=== PATIENT | male | born 2000 | race Caucasian/White ===

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

== ENCOUNTER 2023-06-18 08:27 | Emergency (ER) | payer BC, MEDICAID ==
--- NOTE | 2023-06-18 08:44 | ERPHSYRPT ---
- History of Present Illness Time Seen by Provider: 06/18/23 08:44 Source: patient Exam Limitations: no limitations Physician History: This is a 23-year-old white male patient who has a history of ADHD and presents with 2-day history of nasal congestion, runny nose, mild nonproductive cough and sore throat. Patient has no known exposures to individuals with similar symptoms. He has not had a fever. He denies chest pain. He said no nausea vomiting or diarrhea symptoms. Patient takes no medications chronically and he has no known drug allergies. Timing/Duration: day(s) (2) Cough Quality/Degree: mild Possible Cause: no prior episodes Modifying Factors: Improves With: coughing Associated Symptoms: cough, nasal congestion, nasal drainage, sore throat, No chest pain/soreness, No shortness of breath, No wheezing Allergies/Adverse Reactions: No Known Drug Allergies Allergy (Verified 06/18/23 08:32) Hx Tetanus, Diphtheria Vaccination/Date Given: Yes Hx Influenza Vaccination/Date Given: Yes Hx Pneumococcal Vaccination/Date Given: No Travel Risk - International Travel Have you traveled outside of the country in past 3 weeks: No - Emerging Infectious Disease Are you exhibiting symptoms associated with any current EIDs: Yes Symptoms: Cough: New Onset, Other (Please Comment) (Nasal congestion, sore throat) - Review of Systems Constitutional: No Symptoms Eyes: No Symptoms Ears, Nose, & Throat: Nose Congestion, Nose Discharge, Throat Pain Respiratory: No Symptoms Cardiac: No Symptoms Abdominal/Gastrointestinal: No Symptoms Genitourinary Symptoms: No Symptoms Musculoskeletal: No Symptoms Skin: No Symptoms Neurological: No Symptoms Psychological: No Symptoms Endocrine: No Symptoms Hematologic/Lymphatic: No Symptoms Immunological/Allergic: No Symptoms All Other Systems: Reviewed and Negative - Past Medical History Pertinent Past Medical History: Yes Neurological History: No Pertinent History ENT History: No Pertinent History, Other Cardiac History: No Pertinent History Respiratory History: No Pertinent History Endocrine Medical History: No Pertinent History Musculoskeletal History: No Pertinent History GI Medical History: No Pertinent History History: Other Psycho-Social History: Attention Deficit Disorder Other Medical History: adhd - Past Surgical History Past Surgical History: Yes Neuro Surgical History: No Pertinent History Cardiac: No Pertinent History Respiratory: No Pertinent History Gastrointestinal: No Pertinent History Musculoskeletal: No Pertinent History Other Surgical History: Tubes in ear, urethra split, tenton in neck cut Significant Family History: no pertinent family hx - Social History Smoking Status: Never smoker Exposure to second hand smoke: No Alcohol Use: Occasionally Drug Use: none Patient Lives Alone: No - Nursing Vital Signs Nursing Vital Signs: Initial Vital Signs Temperature 98.3 F 06/18/23 08:33 Pulse Rate 73 06/18/23 08:33 Respiratory Rate 18 06/18/23 08:33 Blood Pressure 109/62 06/18/23 08:33 O2 Sat by Pulse Oximetry 99 06/18/23 08:33 Pain Scale Pain Intensity 4 - Physical Exam General Appearance: no apparent distress, alert Eye Exam: PERRL/EOMI, eyes nml inspection Ears, Nose, Throat Exam: moist mucous membranes, pharyngeal erythema (Mild) Neck Exam: normal inspection, non-tender, supple, full range of motion Respiratory Exam: normal breath sounds, lungs clear, airway intact, No chest tenderness, No respiratory distress Cardiovascular Exam: regular rate/rhythm, normal heart sounds, normal peripheral pulses Gastrointestinal/Abdomen Exam: soft, normal bowel sounds, No tenderness Rectal Exam: not done Back Exam: normal inspection, normal range of motion, No CVA tenderness, No vertebral tenderness Extremity Exam: normal inspection, normal range of motion, pelvis stable Neurologic Exam: alert, oriented x 3, cooperative, assembly hand II-XII nml as tested, normal mood/affect, nml cerebellar function, nml station & gait, sensation nml Skin Exam: normal color, warm, dry Lymphatic Exam: No adenopathy SpO2 Interpretation: normal O2 Delivery: Room Air - Course Nursing assessment & vital signs reviewed: Yes Lab/Rad Data: Laboratory Results 06/18/23 Range/Units 08:39 Influenza Type A Ag NEGATIVE (NEGATIVE) Influenza Type B Ag NEGATIVE (NEGATIVE) RSV (PCR) NEGATIVE (NEGATIVE) SARS-CoV-2 (PCR) NEGATIVE (NEGATIVE) Group A Strep Antibody NOT DETECTED (NEGATIVE) - Progress Progress: unchanged Air Movement: good Progress Note: 06/18/23 09:01 Medical decision making and assignment of low complexity to this patient's medical issues based on review of the patient's past medical history, review of the patient's medication list, review of patient drug allergy list, history present illness and physical findings on examination. The workup in this patient includes viral swabs and group A strep swab. Differential diagnosis strep pharyngitis, viral illness, seasonal allergies 06/18/23 09:19 I interpreted the patient's laboratory data results. Patient does not have an acute, emergent medical issue at this time. Blood Culture(s) Obtained: No Counseled pt/family regarding: lab results, diagnosis, need for follow-up Medical Desision Making - Diagnostic Testing Diagnostic test were ordered, analyzed, and reviewed by me: Yes - Risk of complications The pt has a mod risk of morbidity or mortality based on: Need for prescription drug management - Departure Departure Disposition: Home Clinical Impression: Upper respiratory infection, Pharyngitis Condition: Stable Critical Care Time: No Additional Instructions: Drink plenty of clear liquids. Use Tylenol and ibuprofen for pain and fever control. Take your medications as prescribed. Call your primary care provider on 06/19/2023 to make arrangements for follow-up appointment in the next 5 to 7 days. Use [id number] medications to aid in cough suppression. Prescriptions: Prednisone 10 mg [Deltasone 10 mg] 10 mg PO TID #12 tablet Azithromycin 250 mg [Zithromax 250 MG TABLET] 250 mg PO ZPACK #6 tablet
[2023-06-18 08:45] VITALS: RESP 18; TEMP 98.3; O2SAT 99
[2023-06-18 09:05] LABS: Group A Strep NOT DETECTED (NEGATIVE)
[2023-06-18 09:16] LABS: INFLUENZA A NEGATIVE (NEGATIVE); INFLUENZA B NEGATIVE (NEGATIVE); RESPIRATORY SYNCTIAL VIRUS NEGATIVE (NEGATIVE); SARS-CoV-2 Xpert Express NEGATIVE (NEGATIVE)
[2023-06-18 09:32] VITALS: BP 107/71; PULSE 70
== END 2023-06-18 09:30 | disposition home or self-care (01) ==
LOC: ED 08:27
DX: J06.9 Acute upper respiratory infection, unspecified (principal); J02.9 Acute pharyngitis, unspecified; R09.81 Nasal congestion; R05.1 Acute cough; Z79.52 Long term (current) use of systemic steroids
CPT/HCPCS: 0241U; 87651; 99282

== ENCOUNTER 2023-06-24 05:55 | Emergency (ER) | payer BC, MEDICAID ==
[2023-06-24 06:06] VITALS: RESP 18; TEMP 97.5
[2023-06-24] MEDS ORDERED: solu-MEDROL ONE (06:20)
[2023-06-24] MEDS ORDERED: BENADRYL 50 MG/ML ONE (06:20)
[2023-06-24] MEDS ORDERED: Pepcid 20 MG VIAL IV ONE (06:20)
[2023-06-24] MEDS ORDERED: Sterile H2O 10 ml IJ ONE (06:20)
[2023-06-24] MEDS: Pepcid 20 MG VIAL IV ONE (06:22)
[2023-06-24] MEDS: solu-MEDROL 125 MG, Sterile H2O 10 ml 2 ML IV ONE (06:22)
[2023-06-24] MEDS: BENADRYL 50 MG/ML IV ONE (06:22)
--- NOTE | 2023-06-24 06:51 | ERPHSYRPT ---
- History of Present Illness Time Seen by Provider: 06/24/23 06:15 Source: patient Exam Limitations: no limitations Patient Subjective Stated Complaint: Rash Triage Nursing Assessment: Patient ambulated back to ED and transferred self to bed. Patient A+O X3. Patient's skin pink, warm and dry. Patient states yesterday he noticed a rash to right side and left thigh. Patient states he woke up with a rash all over him. Patient states his lips feel swollen. Patient denies SOB or trouble swallowing. Patient has hives noted to face, lamine arms, chest, trunk, back and lamine legs. Patient denies pain or discomfort. Patient just finished Zpack and Prednisone a few days ago. Physician History: 23-year-old presented in the ER with complains of hives all over. Patient has been taking amoxicillin and steroids for upper respiratory infection. Patient reports she noticed some rash on the right thigh last night and woke up this morning with all over hives with itching and burning sensation. No throat closing sensation or difficulty breathing. No tongue swelling. No history of known drug allergies. Allergies/Adverse Reactions: No Known Drug Allergies Allergy (Verified 06/24/23 06:00) Hx Tetanus, Diphtheria Vaccination/Date Given: Yes Hx Influenza Vaccination/Date Given: Yes Hx Pneumococcal Vaccination/Date Given: No Immunizations Up to Date: Yes Travel Risk - International Travel Have you traveled outside of the country in past 3 weeks: No - Emerging Infectious Disease Are you exhibiting symptoms associated with any current EIDs: No Symptoms: Cough: New Onset, Other (Please Comment) (Nasal congestion, sore throat) Comment: sore throat - Review of Systems Constitutional: No Symptoms Eyes: No Symptoms Ears, Nose, & Throat: No Symptoms Respiratory: No Symptoms Cardiac: No Symptoms Abdominal/Gastrointestinal: No Symptoms Genitourinary Symptoms: No Symptoms Musculoskeletal: No Symptoms Skin: Pruritis, Rash, Skin Lesions Neurological: No Symptoms Psychological: No Symptoms Endocrine: No Symptoms Hematologic/Lymphatic: No Symptoms Immunological/Allergic: No Symptoms - Past Medical History Pertinent Past Medical History: Yes Neurological History: No Pertinent History ENT History: No Pertinent History, Other Cardiac History: No Pertinent History Respiratory History: No Pertinent History Endocrine Medical History: No Pertinent History Musculoskeletal History: No Pertinent History GI Medical History: No Pertinent History History: Other Psycho-Social History: Attention Deficit Disorder Other Medical History: adhd - Past Surgical History Past Surgical History: Yes Neuro Surgical History: No Pertinent History Cardiac: No Pertinent History Respiratory: No Pertinent History Gastrointestinal: No Pertinent History Musculoskeletal: No Pertinent History Other Surgical History: Tubes in ear, urethra split, tenton in neck cut Significant Family History: no pertinent family hx - Social History Smoking Status: Never smoker Exposure to second hand smoke: No Alcohol Use: Occasionally Drug Use: none Patient Lives Alone: No - Nursing Vital Signs Nursing Vital Signs: Initial Vital Signs Temperature 97.5 F 06/24/23 06:00 Pulse Rate 96 H 06/24/23 06:00 Respiratory Rate 18 06/24/23 06:00 Blood Pressure 124/67 06/24/23 06:00 O2 Sat by Pulse Oximetry 99 06/24/23 06:00 Pain Scale Pain Intensity 0 - Physical Exam General Appearance: no apparent distress, alert Eye Exam: PERRL/EOMI Ears, Nose, Throat Exam: normal ENT inspection, TMs normal, pharynx normal, moist mucous membranes Neck Exam: normal inspection, non-tender, supple, full range of motion Respiratory Exam: normal breath sounds, lungs clear Cardiovascular Exam: regular rate/rhythm, normal heart sounds Gastrointestinal/Abdomen Exam: soft, normal bowel sounds, No tenderness Back Exam: normal range of motion Extremity Exam: normal inspection, normal range of motion Neurologic Exam: alert, oriented x 3, cooperative, psych coordinator II-XII nml as tested Skin Exam: normal color, rash (Hives/wheals all over especially in the lower back/abdomen. Warm, nontender, blanchable) SpO2 Interpretation: normal SpO2: 99 O2 Delivery: Room Air Ordered Tests: Medication Summary Discontinued Medications Generic Name Dose Route Start Last Admin Trade Name Jaqueline PRN Reason Stop Dose Admin Methylprednisolone Sodium 0 mg 06/24/23 06:08 06/24/23 06:22 Succinate 125 mg/ Sterile IV 06/24/23 06:09 125 mg Water 2 ml STAT ONE Administration Diphenhydramine HCl 25 mg 06/24/23 06:08 06/24/23 06:22 Diphenhydramine Hcl 50 Mg/Ml Vial IV 06/24/23 06:09 25 mg STAT ONE Administration Diphenhydramine HCl Confirm 06/24/23 06:20 Diphenhydramine Hcl 50 Mg/Ml Vial Administered 06/24/23 06:21 Dose 50 mg .ROUTE .STK-MED ONE Famotidine 20 mg 06/24/23 06:08 06/24/23 06:22 Famotidine 20 Mg/1 Vial IV 06/24/23 06:09 20 mg STAT ONE Administration Famotidine Confirm 06/24/23 06:20 Famotidine 20 Mg/1 Vial Administered 06/24/23 06:21 Dose 20 mg IV .STK-MED ONE Methylprednisolone Sodium Succinate Confirm 06/24/23 06:20 Methylprednis Sod Succ 125 Mg/2 Ml Vial Administered 06/24/23 06:21 Dose 125 mg .ROUTE .STK-MED ONE Sterile Water Confirm 06/24/23 06:20 Water For Injection,Sterile 10 Ml Vial Administered 06/24/23 06:21 Dose 10 ml IJ .STK-MED ONE - Progress Progress: improved Progress Note: 06/24/23 07:09 23-year-old is evaluated for hives all over after amoxicillin and steroids. I believe patient possibly has allergy to amoxicillin. He is given Solu-Medrol/Benadryl/Pepcid, on reevaluation his itching and burning is better and hives are improving. No respiratory compromise. No signs of distress. He will be discharged with outpatient follow-up. Recommended stopping amoxicillin. Will also give EpiPen. Lungs are clear to imaging neb treatment. Counseled pt/family regarding: diagnosis, need for follow-up Medical Desision Making - Risk of complications The pt has a mod risk of morbidity or mortality based on: Need for prescription drug management - Departure Departure Disposition: Home Clinical Impression: Allergic reaction Condition: Stable Critical Care Time: No Referrals: SARAH BYRD NP [Primary Care Provider] - Follow up with PCP 2 days Instructions: Angioedema (DC), Anaphylaxis (DC) Additional Instructions: Continue with Benadryl/Pepcid and steroids. Use EpiPen as needed. Follow-up with primary care for reevaluation. Return to ER for any worsening. Prescriptions: Diphenhydramine HCl 25 mg [Benadryl 25 mg Capsule] 25 mg PO Q4H PRN PRN #20 cap PRN Reason: Allergies Prednisone 20 mg [Deltasone 20 mg] 60 mg PO DAILY 5 Days #15 tablet Famotidine 20 mg [Pepcid 20 MG] 20 mg PO BID #10 tablet EPINEPHrine [Symjepi] 0.3 mg IJ DIRECTIONS UNKNOWN PRN 1 Days #1 unit PRN Reason: Allergies
[2023-06-24 07:56] VITALS: BP 109/69; PULSE 78; O2SAT 98
== END 2023-06-24 07:56 | disposition home or self-care (01) ==
LOC: ED 05:55
DX: L50.0 Allergic urticaria (principal); T36.0X5A Adverse effect of penicillins, initial encounter; Z79.52 Long term (current) use of systemic steroids; Z79.899 Other long term (current) drug therapy
CPT/HCPCS: 36000; 96374; 96375; 99284; J1200; J2919

== ENCOUNTER 2023-06-26 17:14 | Emergency (ER) | payer BC, OTHER ==
--- NOTE | 2023-06-26 17:16 | ERPHSYRPT ---
- History of Present Illness Time Seen by Provider: 06/26/23 17:16 Source: patient Exam Limitations: no limitations Physician History: This is a 23-year-old white male patient who has had 3 visits to the emergency department in the last 8 days. The 3 visits seem to be unrelated. Today, there was sudden onset of right flank pain that was very intense and causing nausea. He has not had a fever. He denies chest pain. He denies shortness of breath. He did have a recent physical examination and laboratory studies performed for work and there was blood in the urine per his report. Patient arrives to the emergency department in significant pain and somewhat writhing. Patient has a history of ADHD. Timing/Duration: today Method of Injury: other (No injury) Quality: aching, stabbing Severity of Pain-Max: moderate Severity of Pain-Current: moderate Modifying Factors: Improves With: nothing Associated Symptoms: nausea, other (Pain in the right flank), No urinary incontinence, No loss of bowel control Previous symptoms: no prior history, no recent treatment Allergies/Adverse Reactions: azithromycin Allergy (Severe, Verified 06/26/23 17:23) Rash Hx Tetanus, Diphtheria Vaccination/Date Given: Yes Hx Influenza Vaccination/Date Given: Yes Hx Pneumococcal Vaccination/Date Given: No Travel Risk - International Travel Have you traveled outside of the country in past 3 weeks: No - Emerging Infectious Disease Are you exhibiting symptoms associated with any current EIDs: No Symptoms: Cough: New Onset, Other (Please Comment) (Nasal congestion, sore throat) Comment: sore throat - Review of Systems Constitutional: No Symptoms Eyes: No Symptoms Ears, Nose, & Throat: No Symptoms Respiratory: No Symptoms Cardiac: No Symptoms Abdominal/Gastrointestinal: No Symptoms Genitourinary Symptoms: Hematuria, Flank Pain (Right flank pain) Musculoskeletal: No Symptoms Skin: No Symptoms Neurological: No Symptoms Psychological: No Symptoms Endocrine: No Symptoms Hematologic/Lymphatic: No Symptoms Immunological/Allergic: No Symptoms All Other Systems: Reviewed and Negative - Past Medical History Pertinent Past Medical History: Yes Neurological History: No Pertinent History ENT History: No Pertinent History, Other Cardiac History: No Pertinent History Respiratory History: No Pertinent History Endocrine Medical History: No Pertinent History Musculoskeletal History: No Pertinent History GI Medical History: No Pertinent History History: Other Psycho-Social History: Attention Deficit Disorder Other Medical History: adhd - Past Surgical History Past Surgical History: Yes Neuro Surgical History: No Pertinent History Cardiac: No Pertinent History Respiratory: No Pertinent History Gastrointestinal: No Pertinent History Musculoskeletal: No Pertinent History Other Surgical History: Tubes in ear, urethra split, tenton in neck cut Significant Family History: no pertinent family hx - Social History Smoking Status: Never smoker Exposure to second hand smoke: No Alcohol Use: Occasionally Drug Use: none Patient Lives Alone: No - Nursing Vital Signs Nursing Vital Signs: Initial Vital Signs Temperature 98.8 F 06/26/23 17:19 Pulse Rate 84 06/26/23 17:19 Respiratory Rate 22 06/26/23 17:19 Blood Pressure 102/81 06/26/23 17:19 O2 Sat by Pulse Oximetry 98 06/26/23 17:19 Pain Scale Pain Intensity 4 - Physical Exam General Appearance: no apparent distress, alert, anxiety Eye Exam: PERRL/EOMI, eyes nml inspection Ears, Nose, Throat Exam: normal ENT inspection, moist mucous membranes Neck Exam: normal inspection, non-tender, supple, full range of motion Respiratory Exam: normal breath sounds, lungs clear, airway intact, No chest tenderness, No respiratory distress Cardiovascular Exam: regular rate/rhythm, normal heart sounds, normal peripheral pulses Gastrointestinal Exam: soft, normal bowel sounds, No tenderness Rectal Exam: not done Back Exam: normal inspection, normal range of motion, CVA tenderness (Right side), No vertebral tenderness Extremity Exam: normal inspection, normal range of motion, pelvis stable Neurologic Exam: alert, oriented x 3, cooperative, general assembler II-XII nml as tested, normal mood/affect, nml cerebellar function, nml station & gait, sensation nml Skin Exam: normal color, warm, dry Lymphatic Exam: No adenopathy SpO2 Interpretation: normal O2 Delivery: Room Air - Course Nursing assessment & vital signs reviewed: Yes Ordered Tests: Active Orders 24 hr Category Date Time Status IV Insertion STAT Care 06/26/23 17:31 Active ABDOMEN AND PELVIS W/0 CONTRAS [CT] Stat Exams 06/26/23 17:32 Taken AMYLASE Stat Lab 06/26/23 18:05 Completed CBC W DIFF Stat Lab 06/26/23 18:05 Completed CMP Stat Lab 06/26/23 18:05 Completed LIPASE Stat Lab 06/26/23 18:05 Completed UA W/RFX UR CULTURE Stat Lab 06/26/23 18:02 Completed Medication Summary Discontinued Medications Generic Name Dose Route Start Last Admin Trade Name Jaqueline PRN Reason Stop Dose Admin Diphenhydramine HCl 25 mg 06/26/23 19:34 06/26/23 19:39 Diphenhydramine Hcl 25 Mg Capsule PO 06/26/23 19:35 25 mg STAT ONE Administration Diphenhydramine HCl Confirm 06/26/23 19:38 Diphenhydramine Hcl 25 Mg Capsule Administered 06/26/23 19:39 Dose 25 mg .ROUTE .STK-MED ONE Hydromorphone HCl 1 mg 06/26/23 17:31 06/26/23 17:44 Hydromorphone 1 Mg/1ml Inj IV 06/26/23 17:32 1 mg STAT ONE Administration Hydromorphone HCl Confirm 06/26/23 17:42 Hydromorphone 1 Mg/1ml Inj Administered 06/26/23 17:43 Dose 1 mg .ROUTE .STK-MED ONE Sodium Chloride 1,000 mls @ 999 mls/hr 06/26/23 17:31 06/26/23 18:52 Sodium Chloride 0.9% 1000 Ml IV 06/26/23 18:31 Infused .Q1H1M STA Infusion Sodium Chloride Confirm 06/26/23 17:42 Sodium Chloride 0.9% 1000 Ml Administered 06/26/23 17:43 Dose 1,000 mls @ ud .ROUTE .STK-MED ONE Ketorolac Tromethamine 30 mg 06/26/23 17:31 06/26/23 17:44 Ketorolac Tromethamine 30 Mg/Ml Inj IV 06/26/23 17:32 30 mg STAT ONE Administration Ketorolac Tromethamine Confirm 06/26/23 17:42 Ketorolac Tromethamine 30 Mg/Ml Inj Administered 06/26/23 17:43 Dose 30 mg .ROUTE .STK-MED ONE Ondansetron HCl 4 mg 06/26/23 17:31 06/26/23 17:44 Ondansetron Hcl 4 Mg/2 Ml Vial IV 06/26/23 17:32 4 mg STAT ONE Administration Ondansetron HCl Confirm 06/26/23 17:42 Ondansetron Hcl 4 Mg/2 Ml Vial Administered 06/26/23 17:43 Dose 4 mg .ROUTE .STK-MED ONE Lab/Rad Data: Laboratory Result Diagrams 06/26/23 18:05 06/26/23 18:05 Laboratory Results 06/26/23 06/26/23 06/26/23 Range/Units 18:05 18:05 18:02 WBC 10.0 (4.0-10.5) x10^3/uL RBC 4.31 (4.1-5.6) x10^6/uL Hgb 13.0 (12.5-18.0) g/dL Hct 39.6 L (42-50) % MCV 91.9 (78-100) fL MCH 30.2 (26-32) pg MCHC 32.8 (32-36) g/dL RDW 12.7 (11.5-14.0) % Plt Count 230 (150-450) x10^3/uL MPV 10.2 (7.5-11.0) fL Gran % 73.0 H (36.0-66.0) % Immature Gran % (Auto) 0.5 H (0.00-0.4) % Nucleat RBC Rel Count 0.0 (0.00-0.1) % Eos # (Auto) 0.02 (0-0.5) x10^3/uL Immature Gran # (Auto) 0.05 H (0.00-0.03) x10^3u/L Absolute Lymphs (auto) 1.95 (1.0-4.6) x10^3/uL Absolute Monos (auto) 0.67 (0.0-1.3) x10^3/uL Absolute Nucleated RBC 0.00 (0.00-0.01) x10^3u/L Lymphocytes % 19.5 L (24.0-44.0) % Monocytes % 6.7 (0.0-12.0) % Eosinophils % 0.2 (0.00-5.0) % Basophils % 0.1 (0.0-0.4) % Absolute Granulocytes 7.29 H (1.4-6.9) x10^3/uL Basophils # 0.01 (0-0.4) x10^3/uL Sodium 140 (135-145) mmol/L Potassium 3.7 (3.5-5.1) mmol/L Chloride 106 (98-107) mmol/L Carbon Dioxide 27 (22-30) mmol/L Anion Gap 10.0 (5-15) MEQ/L BUN 19 (9-20) mg/dL Creatinine 0.86 (0.66-1.25) mg/dL Estimated GFR 126.3 ML/MIN Glucose 99 (74-106) mg/dL Calcium 8.2 L (8.4-10.2) mg/dL Total Bilirubin 0.30 (0.2-1.3) mg/dL AST 17 (17-59) U/L ALT 11 (0-50) U/L Alkaline Phosphatase 57 (38-126) U/L Serum Total Protein 6.1 L (6.3-8.2) g/dL Albumin 3.4 L (3.5-5.0) g/dL Amylase 67 (30-110) U/L Lipase 27 (23-300) U/L Urine Color Yellow (Yellow) Urine Appearance Cloudy A (Clear) Urine pH 8.0 (4.6-8.0) Ur Specific Colman 1.025 (1.005-1.030) Urine Protein 30 (Negative) Urine Glucose (UA) Negative (Negative) mg/dL Urine Ketones Negative (Negative) Urine Blood Trace (Negative) Urine Nitrite Negative (Negative) Urine Bilirubin Negative (Negative) Urine Urobilinogen 1.0 A (0.2) mg/dL Ur Leukocyte Esterase Negative (Negative) U Hyaline Cast (Auto) NONE SEEN (0-2) /LPF Urine Microscopic RBC 21-50 A (0-5) /HPF Urine Microscopic WBC 0-2 (0-5) /HPF Ur Epithelial Cells None Seen (None Seen) /HPF Urine Bacteria None Seen (None Seen) /HPF Urine Culture Reflexed NO (NO) - Progress Progress: improved, pain not gone completely, re-examined Progress Note: 06/26/23 18:31 Medical decision making and the assignment of moderate complexity to this patient's medical issue today is based on review of the patient's medical issue, review of the patient's medication list, review of patient drug allergy list, history present illness and physical findings on examination. The workup in this patient includes placement of intravenous line, infusion of Toradol 30 mg intravenously, infusion of Zofran 4 mg intravenously, infusion of Dilaudid 1 mg intravenously, urinalysis, CBC, CMP, amylase, lipase, CT scan of the abdomen pelvis without contrast. Differential diagnosis includes ureterolithiasis, bowel obstruction, pancreatitis, appendicitis, pyelonephritis, UTI, musculoskeletal back pain 06/26/23 19:57 I interpreted the patient's laboratory data results. Patient does have hematuria without urinary tract infection. CT scan of the abdomen pelvis without contrast was interpreted by the radiologist and I reviewed the impression. The impression states continued normal CT scan of the abdomen pelvis without acute abnormalities. Counseled pt/family regarding: lab results, diagnosis, need for follow-up, rad results Medical Desision Making - Diagnostic Testing Diagnostic test were ordered, analyzed, and reviewed by me: Yes Radiological Interpretation: Reviewed by me, Teleradiologist Report - Risk of complications Minimal Risk: Minimal risk of morbidity - Departure Departure Disposition: Home Clinical Impression: Back pain, Hematuria Condition: Stable Critical Care Time: No Referrals: SARAH BYRD NP [Primary Care Provider] - Follow up/PCP as directed Additional Instructions: Drink plenty of fluids. Take all your medications as prescribed. Follow-up with your primary care provider tomorrow, 06/27/2023, to make arrangements for further evaluation and a follow-up appointment to be seen in the next 3 to 5 days. Discussed with your provider whether or not you would benefit from being referred to a urologist.
[2023-06-26 17:22] VITALS: TEMP 98.8
[2023-06-26] MEDS ORDERED: TORAdol 30 mg Injection ONE (17:42)
[2023-06-26] MEDS ORDERED: Zofran 4 MG/2 ML VIAL ONE (17:42)
[2023-06-26] MEDS ORDERED: Sodium Chloride 0.9% 1000 ML 1,000 ML ONE (17:42)
[2023-06-26] MEDS ORDERED: Hydromorphone 1 mg/ml Injection ONE (17:42)
[2023-06-26] MEDS: Sodium Chloride 0.9% 1000 ML 1,000 ML IV STA (17:44)
[2023-06-26] MEDS: TORAdol 30 mg Injection IV ONE (17:44)
[2023-06-26] MEDS: Hydromorphone 1 mg/ml Injection IV ONE (17:44)
[2023-06-26] MEDS: Zofran 4 MG/2 ML VIAL IV ONE (17:44)
[2023-06-26 18:15] LABS: Absolute Neutrophil Ct (ANC) 7.29 x10^3/uL (1.4-6.9); BASOPHIL % 0.1 % (0.0-0.4); Basophil (Absolute #) 0.01 x10^3/uL (0-0.4); Eosinophil % 0.2 % (0.00-5.0); Eosinophil (Absolute #) 0.02 x10^3/uL (0-0.5); Hematocrit 39.6 % (42-50); IMMATURE GRAN # 0.05 x10^3u/L (0.00-0.03); IMMATURE GRAN % 0.5 % (0.00-0.4); Lymphocyte (Absolute #) 1.95 x10^3/uL (1.0-4.6); Lymphocytes % 19.5 % (24.0-44.0); Mean Cell Volume 91.9 fL (78-100); Mean Corpuscular Hemoglobin 30.2 pg (26-32); Mean Corpuscular Hgb Concent. 32.8 g/dL (32-36); Mean Platelet Volume 10.2 fL (7.5-11.0); Monocyte (Absolute #) 0.67 x10^3/uL (0.0-1.3); Monocytes % 6.7 % (0.0-12.0); Platelet Count 230 x10^3/uL (150-450); Red Blood Count 4.31 x10^6/uL (4.1-5.6); Red Cell Distribution Width 12.7 % (11.5-14.0)
[2023-06-26 18:15] LABS: Appearance Cloudy (Clear); Bacteria None Seen /HPF (None Seen); Bilirubin Negative (Negative); Blood Trace (Negative); Epithelial Cells None Seen /HPF (None Seen); Glucose, Urine Negative (Negative); Hyaline Casts NONE SEEN /LPF (0-2); Ketones Negative (Negative); Leukocyte Esterase Negative (Negative); Nitrite Negative (Negative); Protein,Urine Dip 30 (Negative); RBC 21-50 /HPF (0-5); Specific Gravity 1.025 (1.005-1.030); WBC 0-2 /HPF (0-5)
[2023-06-26 18:16] LABS: ADD URINE CULTURE? NO (NO)
[2023-06-26 18:26] LABS: ALBUMIN 3.4 g/dL (3.5-5.0); BILIRUBIN,TOTAL 0.3 mg/dL (0.2-1.3); Calcium 8.2 mg/dL (8.4-10.2); Creatinine 1 0.86 mg/dL (0.66-1.25); EST GLOMERULAR FILTRATION RATE 126.3 ML/MIN; Potassium 3.7 mmol/L (3.5-5.1); Total Protein 6.1 g/dL (6.3-8.2)
[2023-06-26 19:12] VITALS: PULSE 74; RESP 18
[2023-06-26] MEDS ORDERED: BENADRYL 25 MG CAPSULE ONE (19:38)
[2023-06-26] MEDS: BENADRYL 25 MG CAPSULE PO ONE (19:39)
[2023-06-26 20:04] VITALS: BP 121/74; O2SAT 97
--- NOTE | 2023-06-27 08:34 | XRAY ---
Indication: Right flank pain. Hematuria. Multiple contiguous axial images obtained through the abdomen and pelvis without contrast using renal stone protocol. Comparison: January 18, 2018 Lung bases demonstrate new small left costophrenic angle calcified granuloma. No infiltrate or effusion. Heart not enlarged. No renal calculus or evidence for obstructive uropathy in either system. Noncontrasted stomach and bowel loops appear nonobstructed with normal appendix. No free fluid/air. Remaining liver, gallbladder, pancreas, spleen, adrenal glands, kidneys, ureters, bladder, and aorta are unremarkable for noncontrast exam. Osseous structures intact. No ventral or inguinal hernias. Impression: Continued negative CT abdomen/pelvis without contrast exam.
== END 2023-06-26 20:06 | disposition home or self-care (01) ==
LOC: ED 17:14
DX: M54.9 Dorsalgia, unspecified (principal); R31.9 Hematuria, unspecified; R10.9 Unspecified abdominal pain
CPT/HCPCS: 36000; 36415; 74176; 80053; 81001; 82150; 83690; 85025; 96374; 96375; 99284; J1170; J1885; J2405; A9270-GY

== ENCOUNTER 2024-02-12 02:17 | Emergency (ER) | payer BC, OTHER ==
[2024-02-12 02:43] VITALS: TEMP 97.6
--- NOTE | 2024-02-12 03:01 | ERPHSYRPT ---
- History of Present Illness Historian: patient Exam Limitations: no limitations Patient Subjective Stated Complaint: c/o vomiting and diarrhea Triage Nursing Assessment: patient brought to ED by father with c/o vomiting and diarrhea that started at 19:00. Patient states he has belly pain 4/10 and 6/10 back pain. Pt stated he thinks he has puked 15-16 times. Patient has diarrhea, last BM today. Bowel sounds present in all 4 quads. Patient's vitals wnl, skin w/n/d, afebrile, gasit steady, patient doesn't appear to be in any distress at this time. Physician History: Patient had nausea vomiting diarrhea for about 24 hours. He said he is thrown up multiple times and had a lot of diarrhea. He says he thinks he is getting dehydrated. He does not have any abdominal pain. He has no fever but has had some chills. Eating makes it worse nothing really makes it better. He does not have any abdominal pain. He does not have any abdominal conditions to be worried about at this time. Timing/Duration: today, yesterday Allergies/Adverse Reactions: azithromycin Allergy (Severe, Verified 02/12/24 02:43) Rash Hx Tetanus, Diphtheria Vaccination/Date Given: No (unknown) Hx Influenza Vaccination/Date Given: No Hx Pneumococcal Vaccination/Date Given: No Travel Risk - International Travel Have you traveled outside of the country in past 3 weeks: No - Emerging Infectious Disease Are you exhibiting symptoms associated with any current EIDs: Yes Symptoms: Diarrhea, Vomitting Comment: sore throat - Review of Systems Constitutional: No Symptoms Eyes: No Symptoms Respiratory: No Symptoms Abdominal/Gastrointestinal: Nausea, Vomiting, Diarrhea Genitourinary Symptoms: No Symptoms All Other Systems: Reviewed and Negative - Past Medical History Pertinent Past Medical History: Yes Neurological History: No Pertinent History ENT History: No Pertinent History, Other Cardiac History: No Pertinent History Respiratory History: No Pertinent History Endocrine Medical History: No Pertinent History Musculoskeletal History: No Pertinent History GI Medical History: No Pertinent History History: Other Psycho-Social History: Attention Deficit Disorder Other Medical History: adhd - Past Surgical History Past Surgical History: Yes Neuro Surgical History: No Pertinent History Cardiac: No Pertinent History Respiratory: No Pertinent History Gastrointestinal: No Pertinent History Musculoskeletal: No Pertinent History Other Surgical History: Tubes in ear, urethra split, tendon in neck cut Significant Family History: no pertinent family hx - Social History Smoking Status: Never smoker Exposure to second hand smoke: No Alcohol Use: Occasionally Drug Use: none Patient Lives Alone: No - Social Determinants of Health Will the patient participate in the screening: Yes Do you worry about a steady place to live?: No Do you have any problems with any of the following?: No known problems In the past 12 months,have you had to go without utilities?: No Transportation Issues: No Has anyone in your support network made you feel unsafe?: No Have you or anyone in your house had to go without enough: No - Nursing Vital Signs Nursing Vital Signs: Initial Vital Signs Temperature 97.6 F 02/12/24 02:30 Pulse Rate 86 02/12/24 02:30 Respiratory Rate 19 02/12/24 02:30 Blood Pressure 121/68 02/12/24 02:30 O2 Sat by Pulse Oximetry 97 02/12/24 02:30 Pain Scale Pain Intensity 4 - Physical Exam General Appearance: no apparent distress Eye Exam: PERRL/EOMI Respiratory Exam: normal breath sounds, lungs clear, No chest tenderness, No respiratory distress Cardiovascular Exam: regular rate/rhythm, normal heart sounds Gastrointestinal/Abdomen Exam: soft, normal bowel sounds, tenderness Back Exam: normal inspection, normal range of motion Extremity Exam: normal inspection Neurologic Exam: alert, oriented x 3 Skin Exam: normal color, warm, dry SpO2: 97 - Course Nursing assessment & vital signs reviewed: Yes Ordered Tests: Active Orders 24 hr Category Date Time Status CBC W DIFF Stat Lab 02/12/24 03:20 Received CMP Stat Lab 02/12/24 03:20 Received Medication Summary Generic Name Dose Route Start Last Admin Trade Name Freq PRN Reason Stop Dose Admin Sodium Chloride 1,000 mls @ 999 mls/hr 02/12/24 03:10 02/12/24 03:13 Sodium Chloride 0.9% 1000 Ml IV 02/12/24 04:10 999 mls/hr .Q1H1M STA Administration Discontinued Medications Generic Name Dose Route Start Last Admin Trade Name Freq PRN Reason Stop Dose Admin Sodium Chloride Confirm 02/12/24 03:10 Sodium Chloride 0.9% 1000 Ml Administered 02/12/24 03:11 Dose 1,000 mls @ ud .ROUTE .STK-MED ONE Ondansetron HCl 4 mg 02/12/24 03:10 02/12/24 03:12 Ondansetron Hcl 4 Mg/2 Ml Vial IV 02/12/24 03:11 4 mg STAT ONE Administration Ondansetron HCl Confirm 02/12/24 03:10 Ondansetron Hcl 4 Mg/2 Ml Vial Administered 02/12/24 03:11 Dose 4 mg .ROUTE .STK-MED ONE - Progress Progress: improved Progress Note: Patient was stable throughout stay. On the differential was gastroenteritis, enteritis, colitis, intra-abdominal infection. Lab work confirmed that it is probably viral gastroenteritis. His symptoms and physical exam also support that. Patient got a liter of fluids he felt better. I gave him some Zofran. I went to send him home with Zofran. 02/12/24 02:59 Medical Desision Making - Diagnostic Testing Diagnostic test were ordered, analyzed, and reviewed by me: Yes - Risk of complications Minimal Risk: Minimal risk of morbidity - Departure Departure Disposition: Home Clinical Impression: Nausea vomiting and diarrhea Condition: Stable Critical Care Time: No Referrals: SARAH BYRD NP [Primary Care Provider] - Follow up/PCP as directed Instructions: Viral gastroenteritis in adults Prescriptions: Ondansetron ODT 4 MG [Zofran Odt 4 mg] 4 mg PO Q6H PRN PRN #10 tablet PRN Reason: Nausea
[2024-02-12] MEDS ORDERED: Zofran 4 MG/2 ML VIAL ONE (03:10)
[2024-02-12] MEDS ORDERED: Sodium Chloride 0.9% 1000 ML 1,000 ML ONE (03:10)
[2024-02-12] MEDS: Zofran 4 MG/2 ML VIAL IV ONE (03:12)
[2024-02-12] MEDS: Sodium Chloride 0.9% 1000 ML 1,000 ML IV STA (03:13)
[2024-02-12 03:36] LABS: ALBUMIN 5.4 g/dL (3.5-5.0); ANION GAP 19.5 MEQ/L (5-15); Calcium 10.1 mg/dL (8.4-10.2); Creatinine 1 0.98 mg/dL (0.66-1.25); EST GLOMERULAR FILTRATION RATE 111.8 ML/MIN; Total Protein 8.6 g/dL (6.3-8.2)
[2024-02-12 03:48] LABS: Absolute Neutrophil Ct (ANC) 10.25 x10^3/uL (1.78-5.38); BASOPHIL % 0.3 % (0.2-1.2); Basophil (Absolute #) 0.03 x10^3/uL (0.01-0.08); Eosinophil % 0.2 % (0.8-7.0); Eosinophil (Absolute #) 0.02 x10^3/uL (0.04-0.54); Hematocrit 47.3 % (40.1-51.0); Hemoglobin 16.1 g/dL (13.7-17.5); IMMATURE GRAN # 0.05 x10^3u/L (0.001-0.031); IMMATURE GRAN % 0.4 % (0.001-0.429); Lymphocyte (Absolute #) 0.42 x10^3/uL (1.32-3.57); Lymphocytes % 3.6 % (21.8-53.1); Mean Corpuscular Hemoglobin 29.3 pg (25.7-32.2); Mean Platelet Volume 11.2 fL (9.4-12.4); Monocyte (Absolute #) 0.77 x10^3/uL (0.30-0.82); Monocytes % 6.7 % (5.3-12.2); Neutrophil % 88.8 % (34.0-67.9); Platelet Count 207 x10^3/uL (163-337); Red Cell Distribution Width 12.4 % (11.6-14.4); White Blood Count 11.5 x10^3/uL (4.23-9.07)
[2024-02-12 04:32] VITALS: BP 123/66; PULSE 84; RESP 18; O2SAT 98
[2024-02-12 04:38] LABS: Slide Review 1 YES
== END 2024-02-12 04:40 | disposition home or self-care (01) ==
LOC: ED 02:17
DX: R11.2 Nausea with vomiting, unspecified (principal); R19.7 Diarrhea, unspecified
CPT/HCPCS: 36415; 80053; 85025; 96360; 96374; 99284; J2405